=== PATIENT | male | born 2000 | race Caucasian/White ===

== ENCOUNTER → 2019-01-18 | Outpatient (CLI) | payer BC ==
--- NOTE | 2019-01-18 13:57 | Diagnostic Imaging Report ---
INDICATION: Palpable lump right scrotum. FINDINGS: Right testicle measures 4.4 x 2.3 x 2.7 cm and the left testicle measures 3.4 x 2.4 x 2.8 cm. Both testes show homogeneous echotexture. No discrete testicular mass is seen. There is blood flow to both testes. There is an 8 mm cyst involving the right epididymal head. Left epididymal head contains a 6 mm cyst. No significant hydrocele or varicocele is seen. IMPRESSION: 1. No evidence of testicular mass or vascular compromise. 2. Small bilateral epididymal head cysts. Dictated by: Dictated on workstation # [id number]
== END ==
LOC: RAD 13:34
PROVIDERS: ATTEND Nurse Practitioner Family
DX: N50.3 Cyst of epididymis (principal)
CPT/HCPCS: 76870

== ENCOUNTER → 2021-01-16 | Outpatient (CLI) | payer BC ==
--- NOTE | 2021-01-16 18:58 | Diagnostic Imaging Report ---
INDICATION: Intermittent chest pain going on for some time. FINDINGS: 2 views of the chest demonstrate the lungs to be clear. The heart, mediastinum, and pulmonary vascularity and visualized bony thorax are normal. IMPRESSION: Negative chest. Dictated by: Dictated on workstation # [id number]
== END ==
LOC: RAD 16:45
PROVIDERS: ATTEND Family Medicine
DX: R09.1 Pleurisy (principal); R07.89 Other chest pain
CPT/HCPCS: 71046